=== PATIENT | female | born 1940 | race Caucasian/White ===

== ENCOUNTER 2018-07-23 17:46 | Inpatient (IN) | payer OTHER, MEDICARE ==
--- NOTE | 2018-07-23 18:32 | EDPHY ---
H & P Stated Complaint: sob,fatigue, foot swelling, lives at [facility] for 1 month Time Seen by Provider: 07/23/18 18:08 HPI/ROS: CHIEF COMPLAINT: Generalized fatigue, Lower extremity swelling HISTORY OF PRESENT ILLNESS: Patient is a 77-year-old alcoholic female who has been sober for the last 2 months and is currently living at a rehab facility. She states that she has been generally fatigued for the last 6 months but that it has worsened over the last week. She states that it seems exhausting to even walk. She denies chest pain or shortness of breath. No nausea vomiting or diarrhea. She has had slight urine and stool incontinence for the last 6 months as well. She denies back pain. She denies leg weakness. No numbness or paresthesias. No fevers. No recent immunizations or infections. Today she complained to the psychiatrist at the facility and he noticed she had lower extremity edema. He also was concerned that maybe she had some wheezing in her lungs and sent her here for evaluation. She denies any cardiac history. She also is on Synthroid. Her dose is not been changed any time recently. [employer] Operator with her states they did check her thyroid levels 1 week ago and they were normal. She is already taking thiamin. Severity: Moderate Modifying factors: None REVIEW OF SYSTEMS: Constitutional: See HPI denies: chills, fever, recent illness, recent injury EENTM: denies: blurred vision, double vision, nose congestion Respiratory: denies: cough, shortness of breath Cardiac: denies: chest pain, irregular heart rate, lightheadedness, palpitations Gastrointestinal/Abdominal: denies: abdominal pain, diarrhea, nausea, vomiting, blood streaked stools Genitourinary: See HPI denies: dysuria, frequency, hematuria, pain Musculoskeletal: denies: joint pain, muscle pain Skin: denies: lesions, rash, jaundice, bruising Neurological: denies: headache, numbness, paresthesia, tingling, dizziness, weakness Hematologic/Lymphatic: denies: blood clots, easy bleeding, easy bruising Immunologic/allergic: denies: HIV/AIDS, transplant 10 systems reviewed and negative except as noted EXAM: GENERAL: Well-appearing, well-nourished and in no acute distress. HEAD: Atraumatic, normocephalic. EYES: Pupils equal round and reactive to light, extraocular movements intact, sclera anicteric, conjunctiva are normal. ENT: TMs normal, nares patent, oropharynx clear without exudates. Moist mucous membranes. NECK: Normal range of motion, supple without lymphadenopathy or JVD. LUNGS: Breath sounds clear to auscultation bilaterally and equal. No wheezes rales or rhonchi. HEART: Regular rate and rhythm without murmurs, rubs or gallops. ABDOMEN: Soft, nontender, normoactive bowel sounds. No guarding, no rebound. No masses appreciated. BACK: No CVA tenderness, no spinal tenderness, step-offs or deformities EXTREMITIES: Normal range of motion, 1+ pitting or edema. No clubbing or cyanosis. NEUROLOGICAL: Cranial nerves II through XII grossly intact. Normal speech, cautious and slow gait. 5/5 strength in all extremities, normal movement in all extremities, normal sensation, normal reflexes PSYCH: Depressed affect SKIN: Warm, dry, normal turgor, no visible rashes or lesions. Source: Patient Exam Limitations: No limitations - Personal History Current Tetanus/Diphtheria Vaccine: No Current Tetanus Diphtheria and Acellular Pertussis (TDAP): No - Medical/Surgical History Hx Asthma: No Hx Chronic Respiratory Disease: No Hx Diabetes: No Hx Cardiac Disease: No Hx Renal Disease: No Hx Cirrhosis: No Hx Alcoholism: Yes Hx HIV/AIDS: No Hx Splenectomy or Spleen Trauma: No Other PMH: hysterectomy uterine cancer? appy - Family History Significant Family History: No pertinent family hx - Social History Smoking Status: Never smoked Alcohol Use: Heavy Drug Use: None Constitutional: Initial Vital Signs Temperature (C) 36.6 C 07/23/18 17:55 Heart Rate 79 07/23/18 17:55 Respiratory Rate 20 07/23/18 17:55 Blood Pressure 186/81 H 07/23/18 17:55 O2 Sat (%) 94 07/23/18 17:55 O2 Delivery Mode Room Air Allergies/Adverse Reactions: No Known Allergies Allergy (Unverified 07/23/18 17:54) Home Medications: Medication Instructions Recorded Folic Acid [Folic Acid 1 MG (*)] 1 mg PO DAILY 07/23/18 Herbals/Supplements -Info Only 1 ea PO DAILY 07/23/18 Levothyroxine [Synthroid 50 mcg 50 mcg PO DAILY06 07/23/18 (*)] Lisinopril [Zestril 5 mg (*)] 5 mg PO DAILY 07/23/18 Metoprolol Tartrate [Lopressor 25 25 mg PO BID 07/23/18 mg (*)] Omeprazole 20 mg PO DAILY 07/23/18 Medical Decision Making - Diagnostics EKG Interpretation: An EKG obtained and was read and documented in trace view. Please see trace view for full reading and report. Sinus rhythm, no acute ischemic changes or arrhythmias Imaging: Discussed imaging studies w/ order caller Radiologist ED Course/Re-evaluation: The patient does have lower extremity edema. No lung findings consistent with pulmonary edema or heart failure. She is saturating 98% and has clear breath sounds auscultation. I suspect that this edema is chronic and a simply noticed for the 1st time today. Likely from her years of heavy drinking. She has been told before that she has an enlarged liver. 7:40 p.m. We discussed the x-ray and lab results. I suspect that the patient has early pulmonary edema. This would fit with her history of drinking and low albumin and bilateral lower lobe infiltrates on x-ray. Also her lower extremity edema in high blood pressure. She does have a slightly elevated white blood cell count. It was 10.2 on outpatient labs done about a week ago. She however does not have a fever or cough. [employer] Operator who is with her states that she does have some wheezing when she ambulates. Will treat with Lasix. Will hold off on antibiotics and blood cultures at this point. I have paged hospital service for admission. The patient refuses EMS transport and almost refused admission. 8:00 p.m. discussed the case with Dr. Christianson who will admit to the medical service. Differential Diagnosis: Partial list of the Differential diagnosis considered include but were not limited to; pulmonary edema, cirrhosis, heart failure, UTI and although unlikely based on the history and physical exam, I also considered spinal cord injury, renal disease, thyroid storm. - Data Points Medications Given: Enoxaparin Sodium (Lovenox) 40 mg SC DAILY KATLIN Stop: 01/20/19 08:59 Last Admin: 07/24/18 11:38 Dose: 40 mg Furosemide (Lasix Injection) 20 mg IVP BID@0900,1500 KATLIN Stop: 01/20/19 08:59 Last Admin: 07/24/18 11:39 Dose: 20 mg Lisinopril (Zestril) 5 mg PO DAILY KATLIN Stop: 01/20/19 09:59 Last Admin: 07/24/18 11:38 Dose: 5 mg Metoprolol Tartrate (Lopressor) 25 mg PO BID KATLIN Stop: 01/20/19 09:59 Last Admin: 07/24/18 11:37 Dose: 25 mg Discontinued Medications Furosemide (Lasix Injection) 40 mg IVP EDNOW ONE Stop: 07/23/18 19:41 Last Admin: 07/23/18 20:06 Dose: 40 mg Furosemide (Lasix Injection) 40 mg IVP BID@0900,1500 KATLIN Stop: 01/20/19 08:59 Last Admin: 07/24/18 11:11 Dose: Not Given Potassium Chloride (Klor-Con) 40 meq PO ONCE ONE Stop: 07/23/18 22:39 Last Admin: 07/23/18 23:05 Dose: 40 meq Point of Care Test Results: CBC CBC Collection Date 07/23/18 CBC Collection Time 18:30 WBC 12.81 RBC 3.51 HGB 11.1 HCT 33.1 PLT 329 Neut # 9.90 Neut 77.2 LYMPH # 1.73 LYMPH 13.5 MCV 94.3 Chemistry 07/23/18 07/23/18 18:42 18:41 POC Sodium 137 mEq/L mEq/L (135-145) POC Potassium 3.2 mEq/L L mEq/L (3.3-5.0) POC Chloride 102.0 mEq/L mEq/L (97-110) POC Total CO2 25 mEq/L mEq/L (22-31) POC BUN 10 mg/dL mg/dL (7-23) POC Creatinine 0.8 mg/dL mg/dL (0.6-1.0) POC Glucose 97 mg/dL mg/dL (70-100) POC Calcium 9.0 mg/dL mg/dL (8.5-10.4) POC Total Bilirubin 1.6 mg/dL H mg/dL (0.1-1.4) POC AST 28 IU/L IU/L (14-46) POC ALT 12 IU/L IU/L (9-52) POC Alk Phosphatase 132 IU/L H IU/L (38-126) POC Troponin I 0.01 ng/mL ng/mL (0.00-0.08) POC Total Protein 6.6 g/dL g/dL (6.3-8.2) POC Albumin 3.1 g/dL L g/dL (3.5-5.0) Departure - Departure Disposition: [facility] Inpatient Acute Clinical Impression: Pulmonary edema Qualifiers: Chronicity: acute Qualified Code(s): J81.0 - Acute pulmonary edema Condition: Fair
--- NOTE | 2018-07-23 18:55 | CPEKG ---
Test Reason : OPEN Blood Pressure : / mmHG Vent. Rate : 076 BPM Atrial Rate : 076 BPM P-R Int : 142 ms QRS Dur : 089 ms QT Int : 466 ms P-R-T Axes : 083 070 063 degrees QTc Int : 525 ms Sinus rhythm Prolonged QT interval Confirmed by Tino Stanford ([id number]) on 07/23/2018 6:54:35 PM Referred By: TINO STANFORD Confirmed By:Tino Stanford
[2018-07-23] MEDS ORDERED: FUROSEMIDE 40 MG/4 ML VIAL IVP ONE (19:40)
[2018-07-23] MEDS ORDERED: ONDANSETRON DISINTEGRATING 4 MG TAB PO PRN (22:35)
[2018-07-23] MEDS ORDERED: ONDANSETRON 4 MG/2 ML VIAL IVP PRN (22:35)
[2018-07-23] MEDS ORDERED: ACETAMINOPHEN 325 MG TAB PO PRN (22:35)
[2018-07-23] MEDS ORDERED: POTASSIUM CL 20 MEQ TAB PO ONE (22:38)
--- NOTE | 2018-07-23 23:30 | PDGENHP ---
History and Physical - Chief Complaint Shortness of breath, fatigue - History of Present Illness Source-patient is a little somnolent and she closes her eyes when asked multiple questions. Majority of history is obtained from accepting hospitalist review of EMR. 77-year-old female with past medical history significant for HTN, GERD, hypothyroidism, alcohol dependence in remission who presents ED at [facility] with complaints of 1 week acute on chronically worsening shortness of breath, fatigue. Patient reports that she has had increasing fatigue over the past 6 months. It is acutely worsened in the last week. He has also had increased shortness of breath. She denies any chest pain. She does report some wheezing. Via additional patient reports that she has had increasing lower extremity edema but unable to provide me with a timeline on this. Patient reports she has been sober for 2 months. She is currently residing in a rehab facility [facility] in [place]. Patient denies any fevers or chills. No cough , nausea, vomiting, diarrhea. Patient denies any family history of cardiac disease or heart failure. History Information - Allergies/Home Medication List Allergies/Adverse Reactions: No Known Allergies Allergy (Unverified 07/23/18 17:54) Home Medications: FOLIC ACID 07/23/18 [Last Taken Unknown] Levothyroxine 07/23/18 [Last Taken Unknown] Lisinopril 07/23/18 [Last Taken Unknown] Metoprolol Succinate 07/23/18 [Last Taken Unknown] Prilosec 07/23/18 [Last Taken Unknown] Vitamin B-1 07/23/18 [Last Taken Unknown] I have personally reviewed and updated: family history, medical history, social history, surgical history - Past Medical History Additional medical history: HTN, GERD, hypothyroidism, alcohol dependence in remission since 06/10/2018 - Surgical History Additional surgical history: Appendectomy hysterectomy (?Uterine cancer) - Family History Additional family history: Patient denies any cardiac disease or heart failure in the family. - Social History Smoking Status: Never smoked Alcohol Use: Sober (Since 05/2018) Drug Use: None Additional social history: Patient residing in rehab facility ([facility]) in [place]. COR - FULL. Review of Systems Review of Systems: ROS: 10pt was reviewed & negative except for what was stated in HPI & below Physical Exam Physical Exam: Selected Entries 07/23/18 17:55 Blood Pressure Automatic Method Heart Rate 79 Respiratory 20 Rate O2 Sat (%) 94 Temperature (C) 36.6 C Blood Pressure 186/81 H Mean Arterial 116 H Pressure (MAP) O2 Delivery Room Air Mode Temperature Oral Source Temp Pulse Resp BP Pulse Ox 36.6 C 73 14 146/79 H 96 07/23/18 22:11 07/23/18 22:11 07/23/18 22:11 07/23/18 22:11 07/23/18 22:11 Constitutional: no apparent distress, chronically ill appearing, other (Patient is sleeping when I enter the room. She remained somnolent but. She will open her eyes but does not answer all questions and tries to go back to sleep.), No uncomfortable Eyes: PERRL, anicteric sclera, EOMI, No scleral injection Ears, Nose, Mouth, Throat: moist mucous membranes, poor dentition (Dentition fair condition.), other (No nasal discharge.), No hard of hearing Cardiovascular: regular rate and rhythym, systolic murmur (2-3/6), pulses symmetric bilaterally, edema (Non indurated erythema is blanchable in a right lower extremity.) Peripheral Pulses: 1+: dorsalis-pedis (R) (Limited exam due to edema.), dorsalis -pedis (L) (Limited exam due to edema.) Respiratory: no respiratory distress, reduced air movement (Diminished bibasilarly.), inspiratory crackles (Bibasilar), No expiratory wheeze Gastrointestinal: ascites, distension, No guarding, No rebound Genitourinary: no bladder tenderness, No rollins in urethra Skin: warm, normal color, no rashes or abrasions, erythema (RLE blanchable no induration. improves with elevation. ) Musculoskeletal: generalized weakness, other (Patient moves all extremities. she requires some assistance to sit up) Neurologic: AAOx3, sensation intact bilaterally, weakness (generalized), other ( grossly nonfocal. ), No facial droop Psychiatric: not encephalopathic, thought process linear, flat affect Lab Data & Imaging Review 07/24/18 04:00 07/24/18 04:00 POC Sodium 137 mEq/L (135-145) 07/23/18 18:42 POC Potassium 3.2 mEq/L (3.3-5.0) L 07/23/18 18:42 POC Chloride 102.0 mEq/L (97-110) 07/23/18 18:42 POC Total CO2 25 mEq/L (22-31) 07/23/18 18:42 POC BUN 10 mg/dL (7-23) 07/23/18 18:42 POC Creatinine 0.8 mg/dL (0.6-1.0) 07/23/18 18:42 POC Glucose 97 mg/dL (70-100) 07/23/18 18:42 POC Calcium 9.0 mg/dL (8.5-10.4) 07/23/18 18:42 POC Total Bilirubin 1.6 mg/dL (0.1-1.4) H 07/23/18 18:42 POC AST 28 IU/L (14-46) 07/23/18 18:42 POC ALT 12 IU/L (9-52) 07/23/18 18:42 POC Alk Phosphatase 132 IU/L (38-126) H 07/23/18 18:42 POC Troponin I 0.01 ng/mL (0.00-0.08) 07/23/18 18:41 POC Total Protein 6.6 g/dL (6.3-8.2) 07/23/18 18:42 POC Albumin 3.1 g/dL (3.5-5.0) L 07/23/18 18:42 TSH 4.490 uIU/mL (0.465-4.680) 07/23/18 18:30 Free T4 1.54 ng/dL (0.59-2.19) 07/23/18 18:30 Imaging Review: Chest, Two Views at 1835 hours History: Chest Pain Comparison: None. Findings: Cardiac silhouette is mildly enlarged with atherosclerotic aorta. Bilateral lower lobe alveolar opacities probably representing pneumonia. Minimal bilateral pleural effusions. Old right rib fractures. No pneumothorax. Bilateral apical pleuroparenchymal scarring. Old right clavicle fracture. Impression: 1. Bilateral lower lobe pneumonia. 2. Minimal bilateral pleural effusions. Dictated By: Lonnie Garcia Visualized and Interpreted Chest x-ray results: Yes Visualized and Interpreted EKG results: Yes EKG additional interpertation: NSR 70s. QTc [address] changes. Assessment & Plan Assessment: 77-year-old female with past medical history significant for HTN, GERD, hypothyroidism, alcohol dependence in remission who presents ED at [facility] with complaints of 1 week acute on chronically worsening shortness of breath, fatigue. Acute CHF not specified - diuresis. echo in AM. monitor I/Os. fluid/salt restriction. TSH WNL. btnp is elevated > 6000. bp control. Pulmonary edema (Acute) - patient reports improvement in her respiratory symptoms since receiving lasix and having multiple voids. pleural effusions - cxr noted to have effusions and possible bilateral pneumonia. Patient without c/o cough, fevers. will hold off on antibiotic coverage at this time. monitor clinically with diuresis. consider repeated cxr if patient develops any additional si/sx. benign essential HTN - resume home medications. BP initially elevated upon arrival has since improved. anemia - likely of chronic disease. no previous records. no report of GI bleeding. check iron studies and occult stool hypokalemia - PO replacement elevated bili - likely increased in setting of increased vascular congestion. patient without complaints of abdominal pain and lfts WNL. diuresis. hypoalbuminemia - in setting of likely CHF. FEN - SLIV. diuresis. monitor and replace electrolytes. cardiac diet with fluid/ salt restriction. PPX - SCDs as tolerated. lovenox. COR - FULL. Dispo - Patient admitted to observation pending response and evaluation for CHF.
[2018-07-24 04:48] LABS: PLATELET COUNT 291 10^3/uL (150-400)
[2018-07-24] MEDS ORDERED: FUROSEMIDE 40 MG/4 ML VIAL IVP SCH (09:00)
[2018-07-24] MEDS ORDERED: PROTOCOL MAGNESIUM 1 DOSE IV PRN (09:48)
[2018-07-24] MEDS: METOPROLOL TARTRATE 25 MG TAB PO SCH ×2 (11:37→20:21)
[2018-07-24] MEDS: LISINOPRIL 5 MG TAB PO SCH (11:38)
[2018-07-24] MEDS: ENOXAPARIN 40 MG/0.4 ML SYR SC SCH (11:38)
[2018-07-24] MEDS ORDERED: PROTOCOL POTASSIUM 1 DOSE MISC PRN (11:38)
[2018-07-24] MEDS: FUROSEMIDE 20 MG/2 ML VIAL IVP SCH ×2 (11:39→18:04)
--- NOTE | 2018-07-24 11:58 | ASMTCMCOM ---
CM Note CM Note Notes: Pt has been admitted with pulmonary edema. She has a hx of etoh dependence and is in a 90 day rehab program at the [facility] in [place]. She has been there for 30 days and stated she will return there after d/c to complete the program. She is somewhat ambivalent about being at the [facility] which was instigated by her children. She does admit she needs it and we discussed ways in which she can glean the information helpful to her from the myriad groups she is required to attend. During rounds, pt was told she would most likely be ready for d/c tomorrow. Anticipate d/c independent - CM will continue to follow for any change in needs. D/C plan: Independent (returning to the [facility] in [place]) Date Signed: 07/24/2018 11:58 AM Electronically Signed By:WINSTON Tapia
--- NOTE | 2018-07-24 16:11 | HOSPPROG ---
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 -IV lasix + Aldactone * New evidence of Pulmonary HTN by ECHO -check CTA chest rule out PE * Possible acute diastolic CHF -IV lasix -ECHO pending * Etohism -currently in residential treatment program in [facility] * New urine/fecal incontinence Subjective: Edema is new, lots of dizziness, grabs on to wall when she walks Objective: Vital Signs Temp Pulse Resp BP Pulse Ox 36.6 C 77 20 144/79 H 93 07/24/18 15:08 07/24/18 15:08 07/24/18 15:08 07/24/18 15:08 07/24/18 15:08 Laboratory Results 07/24/18 04:00 07/24/18 04:00 07/23/18 07/24/18 07/25/18 05:59 05:59 05:59 Intake Total 250 1200 Output Total 1200 1600 Balance -950 -400 abd US - c/w Cirrhosis CXR viewed, my personal interpretation is - possible CHF but not that impressive , possible infiltrates at base - Physical Exam Constitutional: no apparent distress, appears nourished, not in pain Cardiovascular: regular rate and rhythym, no murmur, rub, or gallop, edema Gastrointestinal: hepatosplenomegally, distension, No tenderness, No guarding, No rebound Skin: no rashes or abrasions, no fluctuance, no induration Neurologic: AAOx3, sensation intact bilaterally Psychiatric: interacting appropriately, not anxious, not encephalopathic, thought process linear ICD10 Worksheet Patient Problems: Problems Problem Status Onset Pulmonary edema Acute
[2018-07-24] MEDS ORDERED: POTASSIUM CL 10 MEQ TAB PO ONE (16:17)
[2018-07-24] MEDS ORDERED: IOPAMIDOL (ISOVUE 370) 100 ML BTL IV ONE (16:48)
--- NOTE | 2018-07-24 17:34 | PDMN ---
Medical Necessity Medical necessity: Change to IP, as of 07/24/18, per MD & MCG M-190; los >2 mn for ongoing management of CHF w/edema, dizziness, pulmonary htn & new diagnosis of cirrhosis; requiring further workup/monitoring, IV Lasix & therapies; hx alcoholism
[2018-07-24] MEDS ORDERED: MAGNESIUM SULF 2 GM/WATER 50 ML IV ONE (21:00)
[2018-07-24] MEDS ORDERED: POTASSIUM CL 20 MEQ TAB PO ONE (22:39)
[2018-07-25 04:32] LABS: PLATELET COUNT 303 10^3/uL (150-400)
[2018-07-25 04:38] LABS: INR 1.27 (0.83-1.16); PROTIME(PATIENT) 15.4 SEC (12.0-15.0)
[2018-07-25 05:48] LABS: HEPATITIS A ANTIBODY IGM (BCH) NEGATIVE (NEGATIVE); HEPATITIS B CORE AB IGM NEGATIVE (NEGATIVE); HEPATITIS B SURFACE ANTIGEN NEGATIVE (NEGATIVE); HEPATITIS C ANTIBODY TOTAL NEGATIVE (NEGATIVE)
[2018-07-25] MEDS: LEVOTHYROXINE 50 MCG TAB PO SCH (05:57)
[2018-07-25] MEDS ORDERED: POTASSIUM CL 10 MEQ TAB PO ONE ×3 (09:00→22:30)
[2018-07-25] MEDS: ENOXAPARIN 40 MG/0.4 ML SYR SC SCH (10:27)
[2018-07-25] MEDS: FUROSEMIDE 20 MG/2 ML VIAL IVP SCH ×2 (10:27→16:45)
[2018-07-25] MEDS: METOPROLOL TARTRATE 25 MG TAB PO SCH ×2 (10:28→22:17)
[2018-07-25] MEDS: LISINOPRIL 5 MG TAB PO SCH (10:30)
[2018-07-25] MEDS: PANTOPRAZOLE SODIUM 40 MG TAB PO SCH (10:30)
[2018-07-25] MEDS: SPIRONOLACTONE 50 MG TAB PO SCH (10:30)
[2018-07-25] MEDS: FOLIC ACID 1 MG TAB PO SCH (10:31)
--- NOTE | 2018-07-25 15:43 | ECHO ---
[email or web address] [address] Main: [phone] Echocardiography Examination Transthoracic Name: ASHLEY CHRISTOPHER MR#: [id number] Study Date: 07/24/2018 Study Time: 10:33 AM Date of : 1940 Age: 77 year(s) Height: 162.6 cm (64 in.) Weight: 63.5 kg (140 lb.) BSA: 1.68 m2 Gender: Female Examination: Echo Indication: Cardiac: dyspnea, pulmonary edema effusions Image Quality: Adequate Contrast: Requested by: Meggan Harman BP: 138 mmHg/74 mmHg Heart Rate: 79 bpm Rhythm: Indication: Cardiac: dyspnea, pulmonary edema effusions Procedure Staff Referring Physician: Talent Manager: Nika Pichardo RDCS Reading Physician: Claude Arreola MD Requesting Provider: Ordering Physician: Meggan Harman Indication: Cardiac: dyspnea, pulmonary edema effusions Measurements Chambers AV/MV Label Value Normal Value Label Value Normal Value EF lower range (%) 65 % AV Opening, MM 1.2 cm EF upper range (%) 70 % AV PGmax 22 mmHg IVSd, 2D 0.9 cm (0.6cm - 1.1cm) AV PGmean 14 mmHg LVDd, 2D 4 cm (3.9cm - 5.3cm) AV Vmax, Curve 2.3 m/s (1m/s - 1.7m/s) LVDs, 2D 2.6 cm (2.1cm - 4cm) ODALYS D (continuity eq. 1.1 cm2 LVEF, 2D 64 % (54% - 74%) VTI) LVEF, BP 65 % (55% - 70%) MR PISA Alias V. 38.5 cm/s LVEF, MOD2 72 % (55% - 70%) MR PISA Radius 0.9 cm LVEF, MOD4 69 % (55% - 70%) MV A Vmax 0.9 m/s LVOT PGmean 3 mmHg MV DT 204 ms LVOT Vmean 0.78 m/s MV E' lateral 0.09 m/s LVOTd 1.8 cm (1.8cm - 2cm) MV E' mean 0.08 m/s LVPWd, 2D 1 cm MV E' septal 0.07 m/s RVDd, 2D 2.9 cm (1.9cm - 3.8cm) MV E Vmax 1.35 m/s LA Area, A2C 22.2 cm2 (0cm2 - 20cm2) MV E/A 1.5 LA Volume, A2C 72 ml (22ml - 52ml) MV E/E' lateral 14.6 LADs, 2D 3.7 cm (2.7cm - 3.8cm) MV E/E' mean 16.88 RA Area 15.1 cm2 MV E/E' septal 19.8 (0.45 - 1.25) Patient: ASHLEY CHRISTOPHER Study Date: 07/24/2018 Page 1 of 3 10:33 AM Additional Vessels MV PGmax 10 mmHg Label Value Normal Value MV PGmean 4 mmHg AoAsc 2.2 cm MV PHT 0.06 s AoRoot, 2D 2.5 cm (1.4cm - 2.6cm) MV PHT 58 ms IVC 1.9 cm (1.2cm - 2.3cm) MV VTI 42.2 cm MVA D (continuity eq.) 1.5 cm2 MVA PHT 3.8 cm2 TV/PV Label Value Normal Value RA Pressure 5 mmHg RVSP 59 mmHg TR Pmax 54 mmHg TR Vmax 3.66 m/s PV PGmax 3 mmHg PV Vmax, Caliper 0.84 m/s (0.6m/s - 0.9m/s) Conclusions Normal left ventricular size and systolic function. LVEF estimated at 65-70%. Normal left ventricular free wall thickness and wall motion. Grade 2 diastolic dysfunction consistent with pseudonormalization. Moderate left atrial enlargement. Mild aortic sclerosis and mild mitral annular calcification. There is mild aortic stenosis. Trivial aortic regurgitation. Moderate mitral regurgitation. [id number] tricuspid regurgitation. Moderately elevated estimated RVSP of 59 mmHg. Findings Left Ventricle: Left ventricle is normal in size. Normal global systolic left ventricular function. EF evaluated by visual assessment. EF range is estimated at 65 % - 70 %. Left ventricle wall thickness is normal. There is no regional wall motion abnormalities. Grade 2 diastolic dysfunction (pseudonormalized LV filling pattern). Elevated left ventricular filling pressures.. IVS: The septum is intact. Right Ventricle: Normal size right ventricle. Right ventricular wall thickness is normal. Right ventricular systolic function is normal. Left Atrium: The left atrium is moderately dilated. IAS: Normal appearing atrial septum. Right Atrium: The right atrium is normal in size. Mitral Valve: Mitral valve appears structurally normal. Moderate mitral regurgitation. No mitral valve stenosis. There is mitral calcification. Aortic Valve: Aortic leaflets are structurally normal. Trivial aortic regurgitation is present. There is mild aortic stenosis. Aortic leaflets exhibit mild calcification. Tricuspid Valve: Tricuspid valve leaflets are structurally normal. Mild to moderate tricuspid regurgitation. No tricuspid valve stenosis. Tricuspid Valve Measurements Right Ventricular systolic pressure is measured at 59 mmHg. Pulmonic Valve: Pulmonic leaflets are structurally normal. Trivial pulmonic valve regurgitation is present. There is no pulmonic valve Patient: ASHLEY CHRISTOPHER Study Date: 07/24/2018 Page 2 of 3 10:33 AM stenosis. Aorta: The aorta is normal. The aortic root size in 2D measures 2.5 cm. The ascending aorta measures 2.2 cm. Aorta Measurements AoRoot, 2D is 2.5 cm. Pulmonary Artery: The pulmonary artery morphology appears normal. IVC: The inferior vena cava is normal in size. The inferior vena cava is normal in size and course. Pericardium: No pericardial effusion. No pleural effusion present. Exam Details Procedure Ordered: Echo Procedure Status: Routine study Image Quality: Adequate Facility Location: Cardiac Echo 1 (No Signature Object) Patient: ASHLEY CHRISTOPHER Study Date: 07/24/2018 Page 3 of 3 10:33 AM [id number]
[2018-07-25] MEDS ORDERED: LIDO/ZINC OX/CLOTRIMAZOLE (MAD) 116 GM CREAM TP PRN (16:22)
--- NOTE | 2018-07-25 16:34 | HOSPPROG ---
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 check Ammonia for Hepatic Encephalopathy Subjective: diarrhea. reports chronic. fecal incontinence, reports chronic. Objective: Vital Signs Temp Pulse Resp BP Pulse Ox 36.8 C 59 L 16 112/49 L 95 07/25/18 11:53 07/25/18 11:53 07/25/18 11:53 07/25/18 11:53 07/25/18 11:53 Laboratory Results 07/25/18 04:04 07/25/18 04:04 07/24/18 07/25/18 07/26/18 05:59 05:59 05:59 Intake Total 1350 110 Output Total 3200 Balance -1850 110 PT 15.4 SEC (12.0-15.0) H 07/25/18 04:04 INR 1.27 (0.83-1.16) H 07/25/18 04:04 - Physical Exam Constitutional: no apparent distress Eyes: PERRL, EOMI Ears, Nose, Mouth, Throat: moist mucous membranes, hearing normal Cardiovascular: regular rate and rhythym, edema Respiratory: no respiratory distress, no rales or rhonchi, reduced air movement Gastrointestinal: distension Skin: warm Neurologic: AAOx3 Psychiatric: interacting appropriately, encephalopathic (somewhat confused) Lymph, Heme, Immunologic: No petechiae ICD10 Worksheet Patient Problems: Problems Problem Status Onset Chronic Disease Mgmt/Transitional Care Acute Pulmonary edema Acute
--- NOTE | 2018-07-25 16:44 | WOCRNPDOC ---
WOCRN Advanced Assessment Note - Skin Integrity Problem, Advanced Assess Perianal Incont Assoc Dermatitis Dressing Type: Open to Air Exudate Amount: Scant Exudate Characteristic(s): Serous Darrian Wound Tissue: Blanching, Erythema, Xerotic, Scarred Wound Bed Constitution: Red/Nicasio - Non Granular Tissue Wound Edges: Attached Skin Integrity Problem Comment: Severe incontinence associated dermatitis with partial thickness denuded areas approximately 5 cm darrian anal to coccyx. Area is exquisitely tender and patient is quite guarded even during assessment due to the pain. Patient has loose stools at all times. Per her report she was prescribed and used immodium a couple of weeks ago with some success, but she was worried about becoming constipated so she discontinued using it. Will ask provider to write for MAD cream (zinc/lido/triamcinolone) to area BID. Advised leaving area ANTHONY instead of wearing briefs. Bryon ENAMORADO in room for care. Wound care will round next week.
[2018-07-26] MEDS: LEVOTHYROXINE 50 MCG TAB PO SCH (06:22)
[2018-07-26] MEDS: SPIRONOLACTONE 50 MG TAB PO SCH (09:04)
[2018-07-26] MEDS: METOPROLOL TARTRATE 25 MG TAB PO SCH ×2 (09:04→22:46)
[2018-07-26] MEDS: FOLIC ACID 1 MG TAB PO SCH (09:05)
[2018-07-26] MEDS: FUROSEMIDE 40 MG TAB PO SCH (09:05)
[2018-07-26] MEDS: PANTOPRAZOLE SODIUM 40 MG TAB PO SCH (09:07)
[2018-07-26] MEDS: ENOXAPARIN 40 MG/0.4 ML SYR SC SCH (09:10)
[2018-07-26] MEDS ORDERED: LOPERAMIDE HCL 2 MG CAP PO PRN (09:19)
[2018-07-26] MEDS ORDERED: POTASSIUM CL 10 MEQ TAB PO ONE (09:22)
--- NOTE | 2018-07-26 16:10 | HOSPPROG ---
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 will d/w CM Subjective: no cp or sob. no increased to abd distention. afebrile. Objective: Vital Signs Temp Pulse Resp BP Pulse Ox 36.4 C 58 L 17 148/64 H 97 07/26/18 12:00 07/26/18 12:00 07/26/18 12:00 07/26/18 12:00 07/26/18 12:00 Laboratory Results 07/25/18 04:04 07/26/18 04:04 07/25/18 07/26/18 07/27/18 05:59 05:59 05:59 Intake Total 1350 1030 Output Total 3200 550 550 Balance -1850 480 -550 PT 15.4 SEC (12.0-15.0) H 07/25/18 04:04 INR 1.27 (0.83-1.16) H 07/25/18 04:04 - Physical Exam Constitutional: no apparent distress Eyes: PERRL, EOMI Ears, Nose, Mouth, Throat: moist mucous membranes, hearing normal Cardiovascular: regular rate and rhythym, No edema Respiratory: no respiratory distress, no rales or rhonchi, clear to auscultation Gastrointestinal: normoactive bowel sounds Skin: warm Neurologic: AAOx3 Psychiatric: interacting appropriately, not anxious, not encephalopathic Lymph, Heme, Immunologic: No petechiae ICD10 Worksheet Patient Problems: Problems Problem Status Onset Chronic Disease Mgmt/Transitional Care Acute Pulmonary edema Acute
--- NOTE | 2018-07-26 16:34 | ASMTCMCOM ---
CM Note CM Note Notes: 07/26/2018 Case Management Note Multiple phone calls with Moshe at [facility] [phone]. [facility] declined pt d/t incontinence. PT notes recommending SNF rehab. Met w/pt to discuss. Pt agreeable to referral to [facility] in [place]. Faxed referral. Nancy to visit onsite. Anticipating d/c tomorrow. Pt unsure of benefits of [facility]. Encourage pt to contact [facility] staff to determine how SNF stay will impact programming at [facility]. Case Management no longer in contact with [facility] staff. Case Management d/c poc: [facility] in [place] pending acceptance. Case Management to follow. Date Signed: 07/26/2018 04:33 PM Electronically Signed By:Belinda Feliciano RN
[2018-07-27] MEDS: LEVOTHYROXINE 50 MCG TAB PO SCH (05:51)
[2018-07-27] MEDS ORDERED: MAGNESIUM SULF 1 GM/DEXTROSE 100 ML IV ONE ×2 (07:44→08:30)
[2018-07-27] MEDS: PANTOPRAZOLE SODIUM 40 MG TAB PO SCH (08:44)
[2018-07-27] MEDS: FUROSEMIDE 40 MG TAB PO SCH (08:44)
[2018-07-27] MEDS: FOLIC ACID 1 MG TAB PO SCH (08:45)
[2018-07-27] MEDS: SPIRONOLACTONE 50 MG TAB PO SCH (08:45)
[2018-07-27] MEDS: METOPROLOL TARTRATE 25 MG TAB PO SCH (08:45)
[2018-07-27] MEDS: ENOXAPARIN 40 MG/0.4 ML SYR SC SCH (08:47)
[2018-07-27] MEDS ORDERED: METOPROLOL TARTRATE 25 MG TAB PO SCH (09:40)
--- NOTE | 2018-07-27 12:22 | PDDCSUM ---
Discharge Summary Discharge Summary: 77 yo female admitted with SOB, CORTEZ, and fatigue. found to have CHF and Ascites. She has a hx of ETOH abuse, although this is in the past. She was diagnosed with new cirrhosis and ascites. Please see below for details per problem list. She has been diuresed and is now euvolemic. she will f/u with her PCP next week. 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 * chronic urine/fecal incontinence, etiology unclear * Norovirus Diarrhea: start Imodium for symptoms. Stools are formed at this time. *Perianal incontinence associated dermatitis: wound care following, topical cream (Zinc, Lido, Triamcinolone). Will need f/u with PCP Exam: NAD AAOX3 RRR CTA B S/NT/N NO LE EDEMA MEDS: SEE MED REC TOTAL TIME SPENT ON D/C IS 35 MINS
--- NOTE | 2018-07-27 12:23 | PDIAF ---
- Diagnosis Diagnosis: VOLUME OVERLOAD Code Status: Full Code - Medication Management Discharge Medications: electronically signed and located in the Home Medication List. - Orders Services needed: Physical Therapy, Occupational Therapy Isolation Type: Contact Isolation, Droplet Isolation Diet Recommendation: no restrictions on diet Diet Texture: Regular Texture Diet Additional Instructions: Activity: as tolerated F/U: with PCP next week - Follow Up Care Current Providers and Referrals: NONE *PRIMARY CARE P,. [Unknown] - As per Instructions
--- NOTE | 2018-07-27 12:38 | ASDISCHSUM ---
Discharge Information Plan Status:SNF Medically Cleared to Leave:07/26/2018 Discharge Date:07/26/2018 CM D/C Disposition:Fdc Facility ADT D/C Disposition: Projected Discharge Date:07/26/2018 11:00 AM Transportation at D/C: Discharge Delay Reason: Follow-Up Date:07/26/2018 11:00 AM Discharge Slot: Final Diagnosis: Placement Information Referral Type:*Residential/SNF Referral ID:[id number] Provider Name:[facility] [place] Address 1:[address] Address 2: City:[place] Selection Factors: State:[place] Patient Contact Information Contact Name:SHALA Relationship: Address: Home Phone: Work Phone: City: [facility] Phone: [facility] Code: Email: Financial Information Financial Class:Medicare Primary Plan Desc:MEDICARE INPATIENT Primary Plan Number:[id number] Secondary Plan Desc:[employer]/MDR SUPPLEMENT Secondary Plan Number:[id number] Assessment Information LACE LACE Length of stay for Answers: 3 days current admission Acuity / Level of Answers: Yes Care: Did the patient have an inpatient admission? Comorbidities - select Answers: Other Notes: HTN; Hypothyroid all that apply # of Emergency department Answers: 1-2 visits in the last 6 months Social determinants Answers: History of substance abuse (ETOH, street drugs, prescription drugs, etc.) Score: 11 Date Signed: 07/27/2018 12:35 PM Electronically Signed By:Belinda Feliciano RN [facility] Progress Note CM Note CM Note Notes: Pt has been admitted with pulmonary edema. She has a hx of etoh dependence and is in a 90 day rehab program at the [facility] in [place]. She has been there for 30 days and stated she will return there after d/c to complete the program. She is somewhat ambivalent about being at the [facility] which was instigated by her children. She does admit she needs it and we discussed ways in which she can glean the information helpful to her from the myriad groups she is required to attend. During rounds, pt was told she would most likely be ready for d/c tomorrow. Anticipate d/c independent - CM will continue to follow for any change in needs. D/C plan: Independent (returning to the [facility] in [place]) Date Signed: 07/24/2018 11:58 AM Electronically Signed By:WINSTON Tapia [facility] Progress Note CM Note CM Note Notes: 07/26/2018 Case Management Note Multiple phone calls with Moshe at [facility] [phone]. [facility] declined pt d/t incontinence. PT notes recommending SNF rehab. Met w/pt to discuss. Pt agreeable to referral to [facility] in [place]. Faxed referral. Nancy to visit onsite. Anticipating d/c tomorrow. Pt unsure of benefits of [facility]. Encourage pt to contact [facility] staff to determine how SNF stay will impact programming at [facility]. Case Management no longer in contact with [facility] staff. Case Management d/c poc: [facility] in [place] pending acceptance. Case Management to follow. Date Signed: 07/26/2018 04:33 PM Electronically Signed By:Belinda Feliciano RN Case Management Discharge Plan Note Case Management Discharge Discharge Order Complete? Answers: Yes Patient to Obtain Answers: Other Notes: [facility] Medications Transportation Arranged Answers: Other Notes: trasnport arranged by Nancy at [facility] Transport will Pick (Date 07/27/2018 04:45 PM & Time) Faxed Final Orders Answers: Yes Notes: to [facility] Agency/Facility Transfer Answers: Yes Notes: to [employer] Report Printed & Faxed to Receiving Agency Discharge Comments Notes: 07/27/2018 Case Management Note Faxed final orders to [facility] in [place]. Nancy visited onsite. Nancy arranged w/c transport with [facility] today at 1645. RN to call report. Case Management d/c poc: [facility] in [place] Date Signed: 07/27/2018 12:37 PM Electronically Signed By:Belinda Feliciano RN Intervention Information Intervention Type:*ELEAZAR-Signed Date of Service:07/24/2018 09:48 AM Patient Type:Observation Staff Member:Annabel Cordova Hours: Discipline: Severity: Comment:
--- NOTE | 2018-07-27 12:38 | ASMTDCNOTE ---
Case Management Discharge Discharge Order Complete? Answers: Yes Patient to Obtain Answers: Other Notes: [facility] Transportation Arranged Answers: Other Notes: trasnport arranged by Nancy at [facility] Transport will Pick (Date 07/27/2018 04:45 PM & Time) Faxed Final Orders Answers: Yes Notes: to [facility] Agency/Facility Transfer Answers: Yes Notes: to [facility] Report Printed & Faxed to Receiving Agency Discharge Comments Notes: 07/27/2018 Case Management Note Faxed final orders to [facility] in [place]. Nancy visited onsite. Nancy arranged w/c transport with [facility] today at 1645. RN to call report. Case Management d/c poc: [facility] in [place] Date Signed: 07/27/2018 12:37 PM Electronically Signed By:Belinda Feliciano RN
[2018-07-27 16:01] VITALS: BP 139/72
== END 2018-07-27 16:53 | DRG 432 ==
LOC: CED 17:46 → CEDHOLD 20:04 → F2W 21:58 → OBSVTOIN 07-24 10:14
PROVIDERS: ADMIT Family Medicine; ATTEND Internal Medicine
DX: K70.31 Alcoholic cirrhosis of liver with ascites (principal); I11.0 Hypertensive heart disease with heart failure; I50.31 Acute diastolic (congestive) heart failure; A08.39 Other viral enteritis; I27.20 Pulmonary hypertension, unspecified; F10.21 Alcohol dependence, in remission; R15.9 Full incontinence of feces; R32 Unspecified urinary incontinence; L30.9 Dermatitis, unspecified; K21.9 Gastro-esophageal reflux disease without esophagitis; D63.8 Anemia in other chronic diseases classified elsewhere; E87.6 Hypokalemia
CPT/HCPCS: 71046-PO; 80053-ER; 84484-ER; 96374-ER; 97116-GP; 97161-GP; 97165-GO; 97535-GO; G0378; G0472; J1650; J1940; J3475; Q9967